=== PATIENT | male | born 1965 | race African-American/Black ===

== ENCOUNTER 2017-01-06 12:16 | Observation (INO) | payer OTHER ==
[~2017-01-06] VITALS: Ht 162.6 cm; Wt 70.6 kg
[~2017-01-06 12:16] MED LIST: ASPIR-LOW81 MG PO; ASPIRIN325 MG PO; Bactrim,Septra DS 80 PO; COZAAR25 MG PO; CYCLOBENZAPRINE10 M1 G-TUBE; FOLGARD1 TABLET PO; GLUCOPHAGE1000 MG PO; GLUCOPHAGE500 MG PO; Glucophage PO; MOTRIN600 M1 PO; PRAVASTATIN SOD20 MG PO; Percocet 5/325,Endoc PO; Pravachol PO; Tylenol Regular Stre PO; Zestril,Prinivil PO
[2017-01-06 14:34] LABS: CHLORIDE 103 mEq/L (99-109); POTASSIUM 4.1 mEq/L (3.7-5.4); SODIUM 136 mEq/L (136-147)
[2017-01-06 14:36] LABS: GLUCOSE 99 mg/dL (70-99)
[2017-01-06 14:37] LABS: ANION GAP 10 MEQ/L (2-14)
[2017-01-06 14:40] LABS: GFR ESTIMATE (CALCULATED) > 59 mL/min/; UREA NITROGEN (BUN) 11 mg/dL (9-23)
[2017-01-06 14:47] LABS: HEMATOCRIT 44.1 % (38.0-50.0); MCH 22.7 PG (29.0-34.0); MCHC 30.8 G/DL (30.0-36.0); MCV 73.6 FL (86-99); MEAN PLAT.VOLUME 9.7 uM^3 (9.0-12.4); PLATELET COUNT 213 K/uL (156-360); RBC DIS.WIDTH-CV 14.3 % (11.8-14.6); RBC DIS.WIDTH-SD 37.4 % (39-53); RED BLOOD COUNT 5.99 M/uL (4.00-5.50); WHITE BLOOD COUNT 6.7 K/uL (4.1-10.2)
[2017-01-06] MEDS ORDERED: TYLENOL EXTRA500 MG PO (16:41)
[2017-01-06] MEDS ORDERED: VITAMIN D2000 UNI1 PO (16:41)
[2017-01-06 18:39] LABS: POINT-OF-CARE METER ID UU14100415
[2017-01-06 19:47] VITALS: BP 124/104
[2017-01-06 23:41] VITALS: BP 107/55
[2017-01-07 03:42] VITALS: BP 121/75
[2017-01-07 07:48] VITALS: BP 132/74
[2017-01-07 08:12] LABS: POINT-OF-CARE METER ID UU13113831
[2017-01-07 10:57] VITALS: BP 110/68
[2017-01-07] MEDS ORDERED: RELAFEN750 MG PO (11:17)
[2017-01-07] MEDS ORDERED: ROBAXIN750 MG PO (11:18)
== END 2017-01-07 13:26 | disposition home or self-care (01) ==
LOC: EME → EDBD 12:16 → 5WEST 16:45 → EDOF 16:45 → 5WEST 19:23
PROVIDERS: Family Medicine; Internal Medicine; Physician Assistant
DX: M51.36 Other intervertebral disc degeneration, lumbar region (principal); M51.27 Other intervertebral disc displacement, lumbosacral region; I10 Essential (primary) hypertension; E78.5 Hyperlipidemia, unspecified; E11.9 Type 2 diabetes mellitus without complications; Z91.19 Patient's noncompliance with other medical treatment and regimen; Z85.46 Personal history of malignant neoplasm of prostate; Z87.891 Personal history of nicotine dependence
CPT/HCPCS: 72131; 72148; 80048; 82948; 85027; 99281; 99284; G0378; J1650; J1815; J1885; J2270; J3010